=== PATIENT | male | born 1945 | race Two or more races ===

== ENCOUNTER 2018-02-20 10:25 | Emergency (ER) | payer MEDICARE, OTHER ==
[~2018-02-20] VITALS: Ht 167.6 cm; Wt 88.5 kg
[2018-02-20 11:16] LABS: Basophils # (auto) 0 uL; Basophils % (auto) 0.7 % (0.0-2.0); Eosinophils # (auto) 0.1 uL; Eosinophils % (auto) 1.3 % (0.0-7.0); Hematocrit 48.2 % (41.0-53.0); Hemoglobin 16.2 g/dL (13.5-17.5); Lymphocytes # (auto) 1.5 uL; Lymphocytes % (auto) 22.7 % (10.0-50.0); Mean Corpuscular Hemoglobin 30.5 pg (28.0-32.0); Mean Corpuscular Hgb Conc. 33.7 g/dL (32.0-36.0); Mean Corpuscular Volume 90.4 fL (80.0-100.0); Monocytes # (auto) 0.5 uL; Neutrophils # (auto) 4.4 uL; Neutrophils % (auto) 67.3 % (37.0-80.0); Nucleated Red Blood Cells % 0.1 %; Platelet Count (auto) 160 10^3/uL (140-450); Red Blood Cells 5.33 10^6/uL (4.5-5.90); Red Cell Distribution Width 15.3 % (11.8-14.3); White Blood Cell 6.5 10^3/uL (4.4-10.8)
[2018-02-20 11:33] LABS: Alanine Aminotransferase 27 U/L (16-61); Albumin 3.9 g/dL (3.4-5.0); Alkaline Phosphatase 52 U/L (45-117); Anion Gap 10 (5-15); Aspartate Aminotransferase 25 U/L (15-37); BUN/Creatinine Ratio 15.5; Bilirubin, Total 0.4 mg/dL (0.2-1.0); Blood Urea Nitrogen 22 mg/dL (7-18); Calcium 8.7 mg/dL (8.5-10.1); Carbon Dioxide 23 mmol/L (21-32); Chloride 106 mmol/L (98-107); GFR African American 63 mL/min; GFR Non-African American 52 mL/min; Glucose 126 mg/dL (74-106); Potassium 4.1 mmol/L (3.5-5.1); Sodium 139 mmol/L (136-145); Total Protein 7.1 g/dL (6.4-8.2)
[2018-02-20 13:52] VITALS: BP 152/98
== END 2018-02-20 14:02 | disposition home or self-care (01) ==
LOC: ER 10:25
DX: R20.0 Anesthesia of skin (principal); I10 Essential (primary) hypertension; K21.9 Gastro-esophageal reflux disease without esophagitis
CPT/HCPCS: 36415; 70450; 71046; 80053; 84484; 85025; 93005